=== PATIENT | female | born 1955 | race Caucasian/White ===

== ENCOUNTER → 2016-12-16 | Day surgery (SDC) | payer OTHER, BC ==
[2016-12-10 11:42] VITALS: BMI 43.0
[~2016-12-16] VITALS: Ht 162.6 cm; Wt 115.9 kg
[~2016-12-16] MED LIST: ASPCH81X PO; ATV/1 PO; CHOL1TAB46 PO; COEN1CAP7 PO; CYAN500T13 PO; DIPH25CA65 PO; GARLTAB3 PO; HYDR-3419 PO; KRIL1000 PO; LIDOCAINE HCL 2% 2 ML VIAL (20MG/ML) ONE; LISI10TA PO; METO25TA56 PO; MISCCAP80 PO; NAPR1TAB9 PO; OMEP40CA41 PO; PROPOFOL IV EMULSION 10 MG/ML 20 ML VIAL IV ONE; PRVC10 PO; SERT-234 PO; SODIUM CHLORIDE 0.9% 500ML 500 ML IV ONE
[2016-12-16 12:29] VITALS: Ht 162.6 cm; Wt 115.9 kg
--- NOTE | 2016-12-16 13:17 | Endo History and Physical ---
History & Physical Date of Service: Dec 16, 2016. Chief Complaint: SCREENING COLON CA Referring Physician: DR. KELLIE LO History of Present Illness colon cancer surveillence Past Surgical History Hx Cardiac Surgery: No Hx Internal Defibrillator: No Hx Pacemaker: No Hx Abdominal Surgery: Yes (ABHINAV, LETICIA BSO, , LAPAROSCOPY, UTERINE FIBROID REMOVAL) Hx of Implantable Prosthesis: No Hx Post-Op Nausea and Vomiting: No Hx Cancer Surgery: Yes (LIVER RESECTION, COLON RESECTION) Hx Thoracic Surgery: No Hx Orthopedic: No Hx Urinary Tract Surgery: No Family History Colon CA, Polyp Social History Smoking Status: Former Smoker Hx Substance Use: No Hx Alcohol Use: No Allergies Coded Allergies: No Known Allergies (Unverified , 12/16/16) Current Medications Reported Home Medications Medications Dose Route/Sig Max Daily Dose Days Date Category Probiotic (Probiotic Product) 1 Cap Cap 1 Cap PO QAM 12/10/16 Reported Krill Oil 1 Cap Cap 1 Cap PO QAM 12/10/16 Reported Aleve (Naproxen) 220 Mg Tab 2 Tab PO QAM 12/10/16 Reported Coq10 (Coenzyme Q10 (Ubidecarenone)) 200 Mg Cap 1 Cap PO QAM 12/10/16 Reported Zoloft (Sertraline HCl) 100 Mg Tab 100 Mg PO QAM 12/10/16 Reported Pravastatin Sodium (Pravastatin Sod) 10 Mg Tab 1 Tab PO HS 12/10/16 Reported Prilosec (Omeprazole) 40 Mg Cap 40 Mg PO QAM 12/10/16 Reported Lopressor (Metoprolol Tartrate) 25 Mg Tab 25 Mg PO BID 12/10/16 Reported Prinivil (Lisinopril) 10 Mg Tab 10 Mg PO QAM 12/10/16 Reported [Garlic] 1 Tab PO QAM 12/10/16 Reported Benadryl Allergy (Diphenhydramine Hcl) 25 Mg Cap 1 Cap PO BID 30 12/10/16 Reported Vitamin B12 500MCG (Cyanocobalamin) 500 Mcg Tab 500 Mcg PO QAM 12/10/16 Reported Vitamin D3 (Cholecalciferol) 5,000 Unit Tab 1 Tab PO QAM 12/10/16 Reported Vicodin (5MG/300MG) (Hydrocodon/Acetaminophen 5MG/300MG) 1 Tab Tab 1 Tab PO Q6H PRN 11/02/13 Reported Ativan (Lorazepam) 1 Mg Tab 1 Mg PO Q6H 11/02/13 Reported Aspirin Chewable (Aspirin) 81 Mg Chew 81 Mg PO QAM 11/02/13 Reported Vital Signs Weight (Kilograms): 115.91 Height (Feet): 5 Height (Inches): 4 Date Time Temp Pulse Resp B/P Pulse Ox O2 Delivery O2 Flow Rate FiO2 12/16/16 12:41 36.8 80 20 149/87 96 Room Air Physical Exam AAO x3 Nl s1s2 Lungs CTA Abd soft NT ND + BS - CCE Assessment and Plan colonoscopy
--- NOTE | 2016-12-16 13:35 | Discharge Instructions ---
Endoscopy Patient Instructions Date / Procedure(s) Performed Dec 16, 2016. Colonoscopy Allergy Information Coded Allergies: No Known Allergies (Unverified , 12/16/16) Discharge Date / Findings Dec 16, 2016. colon polyp Medication Instructions Stopped Medication(s): STOPPED VITAMINS AND ASA Restart Stopped Medication(s): Reported Home Medications Medications Dose Route/Sig Max Daily Dose Days Date Category Probiotic (Probiotic Product) 1 Cap Cap 1 Cap PO QAM 12/10/16 Reported Krill Oil 1 Cap Cap 1 Cap PO QAM 12/10/16 Reported Aleve (Naproxen) 220 Mg Tab 2 Tab PO QAM 12/10/16 Reported Coq10 (Coenzyme Q10 (Ubidecarenone)) 200 Mg Cap 1 Cap PO QAM 12/10/16 Reported Zoloft (Sertraline HCl) 100 Mg Tab 100 Mg PO QAM 12/10/16 Reported Pravastatin Sodium (Pravastatin Sod) 10 Mg Tab 1 Tab PO HS 12/10/16 Reported Prilosec (Omeprazole) 40 Mg Cap 40 Mg PO QAM 12/10/16 Reported Lopressor (Metoprolol Tartrate) 25 Mg Tab 25 Mg PO BID 12/10/16 Reported Prinivil (Lisinopril) 10 Mg Tab 10 Mg PO QAM 12/10/16 Reported [Garlic] 1 Tab PO QAM 12/10/16 Reported Benadryl Allergy (Diphenhydramine Hcl) 25 Mg Cap 1 Cap PO BID 30 12/10/16 Reported Vitamin B12 500MCG (Cyanocobalamin) 500 Mcg Tab 500 Mcg PO QAM 12/10/16 Reported Vitamin D3 (Cholecalciferol) 5,000 Unit Tab 1 Tab PO QAM 12/10/16 Reported Vicodin (5MG/300MG) (Hydrocodon/Acetaminophen 5MG/300MG) 1 Tab Tab 1 Tab PO Q6H PRN 11/02/13 Reported Ativan (Lorazepam) 1 Mg Tab 1 Mg PO Q6H 11/02/13 Reported Aspirin Chewable (Aspirin) 81 Mg Chew 81 Mg PO QAM 11/02/13 Reported Reported Home Medications Medications Dose Route/Sig Max Daily Dose Days Date Category Probiotic (Probiotic Product) 1 Cap Cap 1 Cap PO QAM 12/10/16 Reported Krill Oil 1 Cap Cap 1 Cap PO QAM 12/10/16 Reported Aleve (Naproxen) 220 Mg Tab 2 Tab PO QAM 12/10/16 Reported Coq10 (Coenzyme Q10 (Ubidecarenone)) 200 Mg Cap 1 Cap PO QAM 12/10/16 Reported Zoloft (Sertraline HCl) 100 Mg Tab 100 Mg PO QAM 12/10/16 Reported Pravastatin Sodium (Pravastatin Sod) 10 Mg Tab 1 Tab PO HS 12/10/16 Reported Prilosec (Omeprazole) 40 Mg Cap 40 Mg PO QAM 12/10/16 Reported Lopressor (Metoprolol Tartrate) 25 Mg Tab 25 Mg PO BID 12/10/16 Reported Prinivil (Lisinopril) 10 Mg Tab 10 Mg PO QAM 12/10/16 Reported [Garlic] 1 Tab PO QAM 12/10/16 Reported Benadryl Allergy (Diphenhydramine Hcl) 25 Mg Cap 1 Cap PO BID 30 12/10/16 Reported Vitamin B12 500MCG (Cyanocobalamin) 500 Mcg Tab 500 Mcg PO QAM 12/10/16 Reported Vitamin D3 (Cholecalciferol) 5,000 Unit Tab 1 Tab PO QAM 12/10/16 Reported Vicodin (5MG/300MG) (Hydrocodon/Acetaminophen 5MG/300MG) 1 Tab Tab 1 Tab PO Q6H PRN 11/02/13 Reported Ativan (Lorazepam) 1 Mg Tab 1 Mg PO Q6H 11/02/13 Reported Aspirin Chewable (Aspirin) 81 Mg Chew 81 Mg PO QAM 11/02/13 Reported Provider Instructions Activity Restrictions - No exercising or heavy lifting for 24 hours. - Do not drink alcohol the day of the procedure. - Do not drive a car or operate machinery until the day after the procedure. - Do not make any important decisions or sign important papers in 24 hours after the procedure. Following Day: - Return to full activity which may include returning to work/school. Diet Start your diet with liquids and light foods (jello, soup, juice, toast). Then eat your usual diet if not nauseated. Treatment For Common After Affects For mild abdominal pain, bloating, or excessive gas: - Rest - Eat lightly - Lie on right side Follow-Up Information Follow-up with DR. KELLIE LO as scheduled Anesthesia Information What You Should Know You have had a procedure that required some medicine to reduce anxiety and discomfort. This treatment is called moderate sedation. After receiving the treatment, you may be sleepy, but you will be able to breathe on your own. The effects of the treatment may last for several hours. Follow these instructions along with Activity/Diet recommendations noted above: * Do NOT do anything where dizziness or clumsiness would be dangerous. * Rest quietly at home today, then you can be up and about tomorrow. * Have a responsible person stay with you the rest of today. * You may have had an I.V. today. If so, you may take the dressing off later today. Recommendations Call your doctor if: * Trouble breathing * Continuous vomiting for more than 24 hours * Temperature above 101 degrees * Severe abdominal pain or bloating * Pain not relieved by pain medicine ordered * There is increased drainage or redness from any incision * A large amount of rectal bleeding greater than 2-3 tablespoons. (If you had a polyp/s removed or have hemorrhoids, a small amount of blood - from the rectum is to be expected.) * You have any unanswered questions or concerns. IN THE EVENT OF A SERIOUS EMERGENCY, GO TO THE NEAREST EMERGENCY ROOM Your discharge instructions were prepared by provider Braxton Musa. Patient Instructions Signature Page Malena Corey Patient (or Guardian) Signature/Date: I have read and understand the instructions given to me by my caregivers. Caregiver/RN/Doctor Signature/Date: The above-named patient and/or guardian has received patient instructions on this date. + Original Patient Signature Page (only) stays with chart. Please make copy for patient.
[2016-12-16 14:08] VITALS: BP 153/84; PULSE 73; O2SAT 97
--- NOTE | 2016-12-16 15:19 | GI REPORT ---
Procedure Date: 12/16/2016 1:10 PM Procedure: Colonoscopy Indications: High risk colon cancer surveillance: Personal history of colon cancer Medicines: Propofol per Anesthesia Complications: No immediate complications. Estimated blood loss: Minimal. Estimated Blood Loss: Estimated blood loss was minimal. Procedure: Pre-Anesthesia Assessment: - Prior to the procedure, a History and Physical was performed, and patient medications and allergies were reviewed. The patient's tolerance of previous anesthesia was also reviewed. The risks and benefits of the procedure and the sedation options and risks were discussed with the patient. All questions were answered, and informed consent was obtained. Prior Anticoagulants: The patient has taken no previous anticoagulant or antiplatelet agents. ASA Grade Assessment: III - A patient with severe systemic disease. After reviewing the risks and benefits, the patient was deemed in satisfactory condition to undergo the procedure. After I obtained informed consent, the scope was passed under direct vision. Throughout the procedure, the patient's blood pressure, pulse, and oxygen saturations were monitored continuously. The Scope was introduced through the anus and advanced to the terminal ileum, with identification of the appendiceal orifice and IC valve. The colonoscopy was performed without difficulty. The patient tolerated the procedure well. The quality of the bowel preparation was good. Findings: The perianal and digital rectal examinations were normal. Pertinent negatives include normal sphincter tone, no palpable rectal lesions and no anal lesion or abnormality was detected. A 3 mm polyp was found in the ascending colon. The polyp was sessile. The polyp was removed with a cold biopsy forceps. Resection and retrieval were complete. Estimated blood loss was minimal. Verification of patient identification for the specimen was done by the physician and train electronic technician using the patient's name and medical record number. There was evidence of a prior end-to-end colo-colonic anastomosis at 20 cm proximal to the anus. This was patent and was characterized by healthy appearing mucosa and an intact staple line. The anastomosis was traversed. The retroflexed view of the distal rectum and anal verge was normal and showed no anal or rectal abnormalities. The exam was otherwise without abnormality. The terminal ileum appeared normal. Impression: - One 3 mm polyp in the ascending colon, removed with a cold biopsy forceps. Resected and retrieved. - Patent end-to-end colo-colonic anastomosis, characterized by healthy appearing mucosa and an intact staple line. - The distal rectum and anal verge are normal on retroflexion view. - The examination was otherwise normal. - The examined portion of the ileum was normal. Recommendation: - Discharge patient to home (ambulatory). - Resume regular diet. - Continue present medications. - Await pathology results. - Repeat colonoscopy for surveillance based on pathology results. MD Braxton Martin MD 12/16/2016 1:42:33 PM This report has been signed electronically. Note Initiated On: 12/16/2016 1:10 PM I attest to the content of the Intraoperative Record and orders documented therein, exceptions below
--- NOTE | 2016-12-16 15:35 | Anesthesiology Progress Note ---
Anesthesia Post Op Note Date & Time Dec 16, 2016 at 15:35 Vital Signs Pain Intensity: 0 Vital Signs Past 12 Hours Date Time Temp Pulse Resp B/P Pulse Ox O2 Delivery O2 Flow Rate FiO2 12/16/16 14:08 73 20 153/84 97 Room Air 12/16/16 13:52 72 20 154/75 97 Room Air 12/16/16 13:37 69 20 140/71 97 Room Air 12/16/16 12:41 36.8 80 20 149/87 96 Room Air Notes Mental Status: alert / awake / arousable Nausea / Vomiting: adequately controlled Pain: adequately controlled Airway Patency, RR, SpO2: stable & adequate BP & HR: stable & adequate Hydration State: stable & adequate Anesthetic Complications: no major complications apparent
== END | disposition home or self-care (01) ==
LOC: C.GI 12:18
PROVIDERS: ATTEND Internal Medicine Gastroenterology
DX: Z12.11 Encounter for screening for malignant neoplasm of colon (principal); D12.2 Benign neoplasm of ascending colon; Z86.010 Personal history of colon polyps; Z90.49 Acquired absence of other specified parts of digestive tract; Z80.0 Family history of malignant neoplasm of digestive organs; Z87.891 Personal history of nicotine dependence; Z79.82 Long term (current) use of aspirin; I10 Essential (primary) hypertension; E78.5 Hyperlipidemia, unspecified; K21.9 Gastro-esophageal reflux disease without esophagitis; M19.90 Unspecified osteoarthritis, unspecified site; F41.9 Anxiety disorder, unspecified; F32.9 Major depressive disorder, single episode, unspecified; Z85.05 Personal history of malignant neoplasm of liver; Z85.038 Personal history of other malignant neoplasm of large intestine; E66.01 Morbid (severe) obesity due to excess calories

== ENCOUNTER → 2016-12-21 | Outpatient (CLI) | payer OTHER, BC ==
[~2016-12-21] MED LIST changes: -LIDOCAINE HCL 2% 2 ML VIAL (20MG/ML) ONE; -PROPOFOL IV EMULSION 10 MG/ML 20 ML VIAL IV ONE; -SODIUM CHLORIDE 0.9% 500ML 500 ML IV ONE
--- NOTE | 2016-12-22 08:02 | MAMMOGRAPHY REPORT ---
BILATERAL DIGITAL SCREENING MAMMOGRAM WITH CAD: 12/21/2016 CLINICAL HISTORY: Routine screening examination. TECHNIQUE: Current study was also evaluated with a Computer Aided Detection (CAD) system. COMPARISON: Comparison is made to exam dated: 12/19/2015, 04/15/2010, 02/03/2011, 01/25/2012, 014, 11/02/2014 mammograms. BREAST COMPOSITION: The tissue of both breasts is almost entirely fatty. FINDINGS: There are benign rim calcifications in the right breast. No suspicious mass, architectura l distortion or cluster of suspicious microcalcifications is seen. IMPRESSION: ACR BI-RADS CATEGORY 1: NEGATIVE There is no mammographic evidence of malignancy. A 1 year screening mammogram is recommended. The p atient will receive written notification of the results. Approximately 10% of breast cancers are not detected with mammography. A negative mammographic repor t should not delay biopsy if a clinically suggestive mass is present. Yoanna Thompson M.D. ay/:12/21/2016 16:23:44 Aviation Maintenance Technician: Silvia ALLEN(Lissett)(Echo), [facility] letter sent: Normal 1/2 BI-RADS Code: ACR BI-RADS Category 1: Negative
== END | disposition home or self-care (01) ==
LOC: C.MAMM 11:59
PROVIDERS: ATTEND Family Medicine
DX: Z12.31 Encounter for screening mammogram for malignant neoplasm of breast (principal)

== ENCOUNTER → 2017-03-26 | Outpatient (CLI) | payer OTHER, BC ==
[2017-03-26 13:31] LABS: BASO % 0.5 %; BASO ABS # 0.04 K/uL (0-0.2); COMPLETE YES; EOS % 3.6 %; HEMATOCRIT 42.5 % (37-47); IG% 0.3 %; LYMPH % 29.4 %; LYMPH ABS # 2.26 K/uL (1.2-3.4); MEAN CELL VOLUME 98.6 fL (80-100); MEAN CORPUSCULAR HEMOGLOBIN 33.2 pg (25-34); MEAN CORPUSCULAR HGB CONC 33.6 g/dl (32-36); MEAN PLATELET VOLUME 9.2 fL (7.4-10.4); MONO % 9.1 %; NEUT % 57.1 %; PLATELET COUNT 220 K/uL (130-400); RED BLOOD COUNT 4.31 M/uL (4.2-5.4)
[2017-03-26 14:18] LABS: ALT/SGPT 27 U/L (12-78); BLOOD UREA NITROGEN 16 mg/dl (7-18); BUN/CREATININE RATIO 18.2 (10-20); CARBON DIOXIDE 28 mmol/L (21-32); CHLORIDE 107 mmol/L (98-107); CREATININE 0.87 mg/dl (0.60-1.20); GLUCOSE 103 mg/dl (70-99); POTASSIUM 3.8 mmol/L (3.5-5.1); SODIUM 143 mmol/L (136-145)
[2017-03-26 14:21] LABS: ALKALINE PHOSPHATASE 100 U/L (45-117); AST/SGOT 23 U/L (15-37); PHOSPHORUS 2.3 mg/dl (2.5-4.9)
[2017-03-26 14:51] LABS: CALCIUM 9.1 mg/dl (8.5-10.1)
== END | disposition home or self-care (01) ==
LOC: C.LABMFLN 09:42
PROVIDERS: ATTEND Internal Medicine Hematology & Oncology
DX: C18.7 Malignant neoplasm of sigmoid colon (principal); N39.0 Urinary tract infection, site not specified; K65.1 Peritoneal abscess; D50.0 Iron deficiency anemia secondary to blood loss (chronic)

== ENCOUNTER → 2018-01-26 | Outpatient (CLI) | payer OTHER, BC ==
--- NOTE | 2018-01-27 07:57 | MAMMOGRAPHY REPORT ---
BILATERAL DIGITAL SCREENING MAMMOGRAM TOMOSYNTHESIS WITH CAD: 01/26/2018 CLINICAL HISTORY: Routine screening. Patient has no complaints. TECHNIQUE: Breast tomosynthesis in addition to standard 2D mammography was performed. Current study was also evaluated with a Computer Aided Detection (CAD) system. COMPARISON: Comparison is made to exams dated: 12/21/2016 mammogram and 12/19/2015 mammogram - [facility]. BREAST COMPOSITION: The tissue of both breasts is almost entirely fatty. FINDINGS: No suspicious masses, calcifications, or areas of architectural distortion are noted in ei ther breast. There has been no significant interval change compared to prior exams. Benign-appearing calcifications bilaterally are again noted. IMPRESSION: ACR BI-RADS CATEGORY 2: BENIGN There is no mammographic evidence of malignancy. A 1 year screening mammogram is recommended. The pa tient will receive written notification of the results. Approximately 10% of breast cancers are not detected with mammography. A negative mammographic report should not delay biopsy if a clinically suggestive mass is present. Victoria Arellano M.D. ah/:01/26/2018 14:32:42 Flat Ironer: Rubia ALLEN(R)(M), [facility] letter sent: Normal 1/2 BI-RADS Code: ACR BI-RADS Category 2: Benign
== END | disposition home or self-care (01) ==
LOC: C.MAMM 12:18
PROVIDERS: ATTEND Family Medicine
DX: Z12.31 Encounter for screening mammogram for malignant neoplasm of breast (principal)

== ENCOUNTER → 2018-03-09 | Outpatient (CLI) | payer OTHER, BC ==
[2018-03-09 13:27] LABS: POTASSIUM 4.1 mmol/L (3.5-5.1)
== END | disposition home or self-care (01) ==
LOC: C.LABMFLN 08:38
PROVIDERS: ATTEND Family Medicine
DX: E78.5 Hyperlipidemia, unspecified (principal); E87.6 Hypokalemia; E55.9 Vitamin D deficiency, unspecified